=== PATIENT | female | born 1980 | race Caucasian/White ===

== ENCOUNTER 2017-03-11 08:00 | Emergency (ER) | payer BC, OTHER ==
[~2017-03-11] VITALS: Ht 154.9 cm; Wt 124.7 kg
[~2017-03-11 08:00] MED LIST: ACETAMINOPHEN-120 ML PO; AMOXICILLIN875 MG PO; ANTIVERT25 MG PO; ATIVAN1 MG; ATIVAN1 MG PO; AZITHROMYCIN 2250 MG PO; CODEINE-GUAIFE120 ML PO; DOXYCYCLINE 10100 MG PO; FLONASE 0.05%50 MCG NASAL; GLUCOPHAGE500 MG; GUAIFEN-CODEIN120 ML PO; HYDROCODONE-AC120 ML PO; HYDROCODONE-AP1 EAC6; HYDROCODONE-AP1 EAC6 PO; IBUPROFEN 600600 M1 PO; LEVOTHYROXIN0.112 M1 PO; MACROBID 100 M100 M1 PO; MICROGESTIN1 EAC1 PO; MYCELEX10 MG MM; NAPROSYN500 MG PO; NORCO 5-325 TA1 EACH PO; PENICILLIN V P500 MG PO; PERCOCET 10-321 EACH; PHENTERMINE HCL15 MG PO; PREDNISONE 20 M20 M1 PO; PROMETHAZINE-C120 ML PO; PROVENTIL HFA6.7 G1 INH; ROBAFEN AC PO; TESSALON PERLE100 MG PO; TOBREX5 ML OPHTHALMIC; TRAMADOL 50 MG50 MG PO; ULTRAM 50MG TAB50 MG PO; VALIUM5 MG PO; VENTOLIN17 GM INH; XANAX 0.5 MG0.5 M1 PO; ZOFRAN4 MG; ZOFRAN4 MG PO; ZPAK PO
[2017-03-11] MEDS ORDERED: TIZANIDINE HCL4 M1 PO (08:15)
[2017-03-11] MEDS ORDERED: HYDROCODONE-AP1 EAC6 PO (08:15)
[2017-03-11 09:03] LABS: BASOPHILS 0.5 % (0.0-2.0); EOSINOPHILS 0.5 % (0.0-3.0); HEMATOCRIT 38.2 % (37.0-47.0); HEMOGLOBIN 12.8 gm/dL (12.0-15.0); LYMPHOCYTES 24.2 % (24.0-44.0); MCH 27.6 pg (26.0-34.0); MCHC 33.6 g/dL (28.0-37.0); MCV 82.1 fL (80.0-100.0); MONOCYTES 7.4 % (1.0-8.0); PLATELET COUNT 374 thou/uL (150-400); POLYS 67.4 % (36.0-66.0); RBC 4.65 mil/uL (4.20-5.00); RDW 12.7 % (10.5-14.5); WBC 8.9 thou/uL (4.0-11.0)
[2017-03-11 09:05] LABS: MANUAL DIFF NO
[2017-03-11 09:08] LABS: CALCIUM 9.3 mg/dL (8.5-10.1); CREATININE 0.8 mg/dL (0.6-1.0); POTASSIUM 4.2 mmol/L (3.5-5.1)
[2017-03-11 09:13] LABS: ALBUMIN 3.4 g/dL (3.4-5.0); TOTAL BILIRUBIN 0.3 mg/dL (<0.1-1.0); TOTAL PROTEIN 7.9 g/dL (6.4-8.2)
[2017-03-11 09:44] LABS: URINE BILIRUBIN NEGATIVE (Negative); URINE BLOOD 3+ (Negative); URINE COLOR YELLOW; URINE GLUCOSE-RANDOM* NEGATIVE (Negative); URINE KETONES NEGATIVE (Negative); URINE LEUKOCYTES-REFLEX NEGATIVE (Negative); URINE PROTEIN (DIPSTICK) NEGATIVE (Negative); URINE SPECIFIC GRAVITY 1.025 (1.003-1.035); URINE UROBILINOGEN 0.2 E.U./dl (0.2-1.0)
[2017-03-11 09:53] LABS: CASTS None Seen /LPF (None Seen); SQUAMOUS 0-3 Few /LPF (0-3)
[2017-03-11 09:54] LABS: CRYSTALS None Seen /LPF (None Seen); URINE RBC 0-2 Rare /HPF (0-2); URINE WBC-REFLEX 0-5 Rare /HPF (0-5)
[2017-03-11] MEDS ORDERED: PRILOSEC 20 MG20 MG PO (10:37)
[2017-03-11] MEDS ORDERED: TRAMADOL 50 MG50 MG PO (10:37)
[2017-03-11 11:00] VITALS: BP 126/60
== END 2017-03-11 10:55 | disposition home or self-care (01) ==
LOC: ER 08:00
PROVIDERS: Emergency Medicine
DX: R10.13 Epigastric pain (principal); R11.0 Nausea; Z98.890 Other specified postprocedural states; Z87.891 Personal history of nicotine dependence

== ENCOUNTER 2017-05-28 06:41 | Emergency (ER) | payer BC, OTHER ==
[~2017-05-28] VITALS: Ht 154.9 cm; Wt 124.7 kg
[~2017-05-28 06:41] MED LIST changes: +CARAFATE 1 GM TA1 G1 PO; +PRILOSEC 20 MG20 MG PO; +TIZANIDINE HCL4 M1 PO
[2017-05-28 07:37] LABS: ABSOLUTE NEUTROPHILS 7.6 thou/uL (1.4-8.2); BASOPHILS 0.5 % (0.0-2.0); EOSINOPHILS 0.8 % (0.0-3.0); HEMATOCRIT 37.8 % (37.0-47.0); HEMOGLOBIN 12.5 gm/dL (12.0-15.0); LYMPHOCYTES 39.5 % (24.0-44.0); MCH 27.2 pg (26.0-34.0); MCHC 33.1 g/dL (28.0-37.0); MONOCYTES 5.8 % (1.0-8.0); PLATELET COUNT 403 thou/uL (150-400); POLYS 53.4 % (36.0-66.0); RBC 4.61 mil/uL (4.20-5.00); RDW 13.4 % (10.5-14.5); WBC 14.2 thou/uL (4.0-11.0)
[2017-05-28 07:47] LABS: CREATININE 0.8 mg/dL (0.6-1.0); POTASSIUM 3.8 mmol/L (3.5-5.1)
[2017-05-28 07:53] LABS: ALBUMIN 3.3 g/dL (3.4-5.0); TOTAL BILIRUBIN 0.2 mg/dL (<0.1-1.0); TOTAL PROTEIN 7.7 g/dL (6.4-8.2)
[2017-05-28] MEDS ORDERED: HYDROCODONE-AP1 EAC6 PO (08:30)
[2017-05-28] MEDS ORDERED: LEVSIN0.125 MG PO (08:30)
== END 2017-05-28 10:00 | disposition home or self-care (01) ==
LOC: ER 06:41
PROVIDERS: Emergency Medicine
DX: K52.9 Noninfective gastroenteritis and colitis, unspecified (principal); Z87.891 Personal history of nicotine dependence

== ENCOUNTER 2017-06-02 17:28 | Emergency (ER) | payer BC, OTHER ==
[~2017-06-02] VITALS: Ht 154.9 cm; Wt 124.7 kg
[~2017-06-02 17:28] MED LIST changes: +LEVSIN0.125 MG PO
[2017-06-02 19:06] LABS: ABSOLUTE NEUTROPHILS 9.1 thou/uL (1.4-8.2); BASOPHILS 1.3 % (0.0-2.0); EOSINOPHILS 0.7 % (0.0-3.0); HEMATOCRIT 35.6 % (37.0-47.0); LYMPHOCYTES 36.9 % (24.0-44.0); MCH 27.3 pg (26.0-34.0); MCHC 33.7 g/dL (28.0-37.0); MCV 81.2 fL (80.0-100.0); MONOCYTES 6.2 % (1.0-8.0); PLATELET COUNT 375 thou/uL (150-400); POLYS 54.9 % (36.0-66.0); RBC 4.39 mil/uL (4.20-5.00); RDW 13.3 % (10.5-14.5); WBC 16.7 thou/uL (4.0-11.0)
[2017-06-02 19:13] LABS: CALCIUM 9.1 mg/dL (8.5-10.1); CREATININE 0.8 mg/dL (0.6-1.0)
[2017-06-02 19:19] LABS: ALBUMIN 3.4 g/dL (3.4-5.0); TOTAL BILIRUBIN 0.2 mg/dL (<0.1-1.0); TOTAL PROTEIN 7.8 g/dL (6.4-8.2)
[2017-06-02 20:23] LABS: URINE BILIRUBIN NEGATIVE (Negative); URINE BLOOD NEGATIVE (Negative); URINE CLARITY CLEAR; URINE COLOR YELLOW; URINE GLUCOSE-RANDOM* NEGATIVE (Negative); URINE KETONES NEGATIVE (Negative); URINE LEUKOCYTES-REFLEX NEGATIVE (Negative); URINE NITRITE-REFLEX NEGATIVE (Negative); URINE PROTEIN (DIPSTICK) NEGATIVE (Negative); URINE UROBILINOGEN 0.2 E.U./dl (0.2-1.0)
[2017-06-02] MEDS ORDERED: CIPROFLOXACIN500 M1 PO (20:36)
[2017-06-02] MEDS ORDERED: FLAGYL500 M1 PO (20:36)
[2017-06-02] MEDS ORDERED: ZOFRAN ODT4 MG PO (20:36)
[2017-06-02] MEDS ORDERED: DIFLUCAN150 MG PO (20:36)
[2017-06-02] MEDS ORDERED: NORCO 5-325 TA1 EACH PO (20:36)
[2017-06-02] MEDS ORDERED: BENTYL 20 MG TA20 M1 PO (21:07)
== END 2017-06-02 21:00 | disposition home or self-care (01) ==
LOC: ER 17:28
PROVIDERS: Emergency Medicine
DX: K52.9 Noninfective gastroenteritis and colitis, unspecified (principal); R10.2 Pelvic and perineal pain; Z87.891 Personal history of nicotine dependence

== ENCOUNTER 2017-07-28 14:08 | Emergency (ER) | payer BC, OTHER ==
[~2017-07-28] VITALS: Ht 154.9 cm; Wt 122.5 kg
[~2017-07-28 14:08] MED LIST changes: +BENTYL 20 MG TA20 M1 PO; +CIPROFLOXACIN500 M1 PO; +DIFLUCAN150 MG PO; +FLAGYL500 M1 PO; +ZOFRAN ODT4 MG PO
[2017-07-28] MEDS ORDERED: PREDNISONE 20 M20 MG PO (15:08)
[2017-07-28 15:24] VITALS: BP 137/74
== END 2017-07-28 15:25 | disposition home or self-care (01) ==
LOC: ER 14:08
DX: T78.40XA Allergy, unspecified, initial encounter (principal); X58.XXXA Exposure to other specified factors, initial encounter; Z87.891 Personal history of nicotine dependence

== ENCOUNTER 2017-09-06 10:04 | Emergency (ER) | payer BC, OTHER ==
[~2017-09-06] VITALS: Ht 154.9 cm; Wt 122.5 kg
[~2017-09-06 10:04] MED LIST changes: +PREDNISONE 20 M20 MG PO
[2017-09-06] MEDS ORDERED: SYNTHROID150 MCG PO (10:56)
[2017-09-06] MEDS ORDERED: WELLBUTRIN XL300 MG PO (10:57)
[2017-09-06] MEDS ORDERED: VENTOLIN HFA 1818 GM INH (11:31)
[2017-09-06] MEDS ORDERED: TESSALON PERLE100 MG PO (11:31)
[2017-09-06 11:59] VITALS: BP 160/76
== END 2017-09-06 11:59 | disposition home or self-care (01) ==
LOC: ER 10:04
DX: J40 Bronchitis, not specified as acute or chronic (principal); Z87.891 Personal history of nicotine dependence

== ENCOUNTER 2018-03-07 19:24 | Emergency (ER) | payer BC, OTHER ==
[~2018-03-07] VITALS: Ht 152.4 cm; Wt 124.7 kg
[~2018-03-07 19:24] MED LIST changes: +SYNTHROID150 MCG PO; +VENTOLIN HFA 1818 GM INH; +WELLBUTRIN XL300 MG PO
[2018-03-07 22:03] VITALS: BP 155/85
== END 2018-03-07 21:11 | disposition home or self-care (01) ==
LOC: ER 19:24
DX: T23.202A Burn of second degree of left hand, unspecified site, initial encounter (principal); T31.0 Burns involving less than 10% of body surface; Z87.891 Personal history of nicotine dependence; Z98.890 Other specified postprocedural states; Z90.10 Acquired absence of unspecified breast and nipple

== ENCOUNTER 2019-01-23 10:26 | Emergency (ER) | payer BC, OTHER ==
[~2019-01-23] VITALS: Ht 154.9 cm; Wt 114.3 kg
[2019-01-23 11:09] LABS: URINE BILIRUBIN NEGATIVE (Negative); URINE BLOOD 2+ (Negative); URINE CLARITY CLEAR; URINE COLOR YELLOW; URINE GLUCOSE-RANDOM* NEGATIVE (Negative); URINE KETONES NEGATIVE (Negative); URINE NITRITE-REFLEX NEGATIVE (Negative); URINE PROTEIN (DIPSTICK) NEGATIVE (Negative); URINE SPECIFIC GRAVITY >= 1.030 (1.005-1.035); URINE UROBILINOGEN 0.2 E.U./dl (0.2-1.0)
[2019-01-23 11:11] LABS: URINE LEUKOCYTES-REFLEX 1+ (Negative)
[2019-01-23 11:17] LABS: SQUAMOUS 4-10 Moderate /LPF (0-3)
[2019-01-23 11:18] LABS: AMORPHOUS URATES Moderate /LPF (None Seen); CASTS None Seen /LPF (None Seen); URINE RBC 0-2 Rare /HPF (0-2); URINE WBC-REFLEX 0-5 Rare /HPF (0-5)
[2019-01-23 12:14] LABS: ABSOLUTE NEUTROPHILS 5.5 thou/uL (1.4-8.2); BASOPHILS 0.5 % (0.0-2.0); HEMATOCRIT 36.5 % (37.0-47.0); HEMOGLOBIN 12.2 gm/dL (12.0-15.0); LYMPHOCYTES 40.3 % (24.0-44.0); MCH 27.9 pg (26.0-34.0); MCHC 33.4 g/dL (28.0-37.0); MCV 83.5 fL (80.0-100.0); MONOCYTES 5.3 % (1.0-8.0); PLATELET COUNT 379 thou/uL (150-400); POLYS 52.9 % (36.0-66.0); RBC 4.38 mil/uL (4.20-5.00); RDW 14.3 % (10.5-14.5); WBC 10.4 thou/uL (4.0-11.0)
[2019-01-23 12:16] LABS: CALCIUM 8.5 mg/dL (8.5-10.1); CREATININE 0.8 mg/dL (0.6-1.0); POTASSIUM 3.8 mmol/L (3.5-5.1)
[2019-01-23 12:22] LABS: ALBUMIN 3.2 g/dL (3.4-5.0); TOTAL BILIRUBIN 0.3 mg/dL (<0.1-1.0); TOTAL PROTEIN 7.1 g/dL (6.4-8.2)
[2019-01-23] MEDS ORDERED: BENTYL 20 MG TA20 M1 PO (12:59)
[2019-01-23] MEDS ORDERED: ONDANSETRON HCL4 M2 PO (12:59)
[2019-01-23 13:08] VITALS: BP 135/71
--- NOTE | 2019-01-24 08:53 | EKG ---
[place] [address] [facility] [place] [address] ELECTROCARDIOGRAM REPORT Name: IVET GIRON Room #: DEP [facility]#: [id number] Admission: 01/23/19 Attend Phys: Discharge: 01/23/19 Date of : 80 Report #: [id number] THIS REPORT FOR: //name// [facility] ED Test Date: 2019-01-23 Test Time: 10:36:38 Pat Name: IVET GIRON Department: Room: Gender: F Breaker Up: ALEXIS : 1980 Requested By: Marleny Flores Order Number: [id number] MD: Quirino Aragon Measurements Intervals [place] Rate: 93 P: 44 DE: 133 QRS: 16 QRSD: 75 T: -17 QT: 442 QTc: 550 Interpretive Statements Sinus rhythm Borderline T abnormalities, diffuse leads Prolonged QT interval Compared to ECG 06/13/2015 16:36:44 T-wave abnormality now present Electronically Signed On 01-24-2019 8:53:11 CDT by Quirino Aragon [email or web address] <ELECTRONICALLY SIGNED> By: Quirino Aragon MD, [facility] 01/24/19 0853 35 35 Quirino Aragon MD, FAC /EPI
[2019-01-31] MEDS ORDERED: OXYCODONE HCL 55 MG PO (09:03)
== END 2019-01-23 13:42 | disposition home or self-care (01) ==
LOC: ER 10:26
PROVIDERS: Physician Assistant
DX: K80.50 Calculus of bile duct without cholangitis or cholecystitis without obstruction (principal); Z98.890 Other specified postprocedural states; Z87.891 Personal history of nicotine dependence

== ENCOUNTER → 2019-01-24 | Outpatient (CLI) | payer BC, OTHER ==
[~2019-01-24] MED LIST changes: +ACETAMINOPHEN325 M1 PO; +COLACE 100 MG100 MG PO; +IBUPROFEN 200200 M1 PO; +MIRALAX17 GM PO; +NORCO 5-325 TA1 EAC1 PO; +ONDANSETRON HCL4 M2 PO; +OXYCODONE HCL 55 MG PO
== END ==
LOC: NUC 13:02
DX: R10.11 Right upper quadrant pain (principal)

== ENCOUNTER 2019-01-25 13:58 | Observation (INO) | payer BC, OTHER ==
[~2019-01-25] VITALS: Ht 157.5 cm; Wt 114.8 kg
[~2019-01-25 13:58] MED LIST changes: -ACETAMINOPHEN325 M1 PO; -COLACE 100 MG100 MG PO; -IBUPROFEN 200200 M1 PO; -MIRALAX17 GM PO; -NORCO 5-325 TA1 EAC1 PO; -OXYCODONE HCL 55 MG PO
[2019-01-25 14:41] VITALS: BP 125/83
[2019-01-25 20:30] VITALS: BP 117/53
[2019-01-25 21:05] VITALS: BP 135/73
[2019-01-25 22:05] VITALS: BP 134/70
[2019-01-25 23:05] VITALS: BP 146/75
[2019-01-25 23:42] VITALS: BP 123/85
[2019-01-26 03:25] VITALS: BP 114/56
[2019-01-26 04:33] VITALS: BP 123/70
--- NOTE | 2019-01-26 05:03 | NUR ---
PROGRESS PT PROGRESSING PAIN CONTROLLED WITH SCHEDULED TYLENOL, AND PRN OXYCODONE. TOLERATING REG DIET, PT ATE A JELLO AND A BOXED LUNCH WITH NO NAUSEA. VSS, ABDOMEN SOFT WITH HYPOACTIVE BS PT REPORTS BELCHING BUT NO FLATUS AT THIS TIME. IVF'S INFUSING ORDERED. PT UP TO BATHROOM X 2 VOIDED 1500 CC'S CLEAR YELLOW URINE. TAKING PO FLUIDS IN ADEQUATE AMOUNTS. LAP SITES X 4 TO ABDOMEN WELL APPROXIMATED, NO DRAINAGE AND DERMABOND INTACT. SCD'S IN PLACE. PT VERBALIZED SHE WANTS TO GO HOME TODAY.
[2019-01-26 07:17] VITALS: BP 99/62
[2019-01-26 07:38] VITALS: BP 135/67
[2019-01-26 07:47] VITALS: BP 139/74
[2019-01-26] MEDS ORDERED: OXYCODONE HCL 55 MG PO (08:29)
[2019-01-26] MEDS ORDERED: ACETAMINOPHEN325 M1 PO (08:29)
[2019-01-26] MEDS ORDERED: COLACE 100 MG100 MG PO (08:30)
[2019-01-26] MEDS ORDERED: MIRALAX17 GM PO (08:30)
[2019-01-26] MEDS ORDERED: IBUPROFEN 200200 M1 PO (08:31)
[2019-01-26 11:12] VITALS: BP 99/62
--- NOTE | 2019-01-26 12:27 | NUR ---
Received awake on bed. Due medications given as prescribed, able to swallow meds w/o difficulty. A+Ox4. On room air. With LR at 75cc/hr, infusing well at R FA. 4 lap sites with dermabond, C/D/I- no discharge or signs of infection noted. Complained of pain, due PRN pain meds given as prescribed. Vital signs stable. Able to use the bathroom to pass urine. On regular diet- tolerating well; no nausea, no vomiting and no abdominal pain noted. Pt seen and examined by Dr Shaila gallardo AM- discharge orders made. Discharge instructions, follow up schedule, and prescription given and instructed to patient. IV discontinued. Pt brought down by [employer] via wheelchair with her personal belongings, pt fetched by her .
--- NOTE | 2019-01-27 15:07 | PATH ---
[facility] [address] [place] [address] PATHOLOGY RPT PROCEDURE Name: IVET GIRON Room #: 449-I NARESH Moreau MUrsulaRUrsula#: [id number] Admission: 01/25/19 Date of : 80 Discharge: 01/26/19 Report #: [id number] Path Case #: [id number] [facility] Accession Number: [id number] . 01 Material submitted: . gallbladder - GALLBLADDER . 01 Clinical history: . Cholecystitis . 02 Diagnosis: Gallbladder, cholecystectomy: - Mild chronic cholecystitis. - Cholesterol polyp. - Negative for dysplasia or malignancy. . (IUV:mml; 01/27/2019) QL 01/27/2019 1351 Local . 02 Electronically signed: . Alem Canales MD, Pathologist NPI- [id number] . 01 Gross description: . The specimen is received in formalin, labeled "Ivet White, gallbladder". Received is an intact gallbladder measuring 8.8 x 2.8 x 2.3 cm in greatest dimensions displaying a blue-summers serosal surface. Opening the specimen reveals a velvety, bile-stained mucosa displaying a single polypoid excrescence measuring 0.2 cm, and with a gallbladder wall thickness of 0.1 cm. Calculi are not present, and no masses or lesions are noted grossly. Roll Hand sections, to include the proximal margin, are submitted in cassette A1. (CAA; 01/26/2019) QAC/QAC 01/26/2019 [facility]0 Local . 02 Pathologist provided ICD-10: K81.1, K82.4 . 02 CPT . 034875 Specimen Comment: A courtesy copy of this report has been sent to Specimen Comment: [phone], . Specimen Comment: Report sent to / DR PALOMINO Performed at: [address], [place], [place] [id number] MD Dallas Amin MD Phone: [phone] [address] [address] PATHOLOGY RPT PROCEDURE Name: IVET GIRON Room #: 449-I NARESH Hart#: [id number] Admission: 01/25/19 Date of : 80 Discharge: 01/26/19 Report #: [id number] Path Case #: [id number] Performed at: [address] [id number] MD Alem Canales MD Phone: [phone]
[2019-01-31] MEDS ORDERED: OXYCODONE HCL 55 MG PO (09:03)
== END 2019-01-26 12:23 | disposition home or self-care (01) ==
LOC: OR 13:58 → TBA 14:39 → 4W 14:39 → ENTRNSPT 01-26 11:41 → EDTRNSPTSTS 01-26 12:00 → 4W 01-26 12:23
PROVIDERS: ADMIT Surgery
DX: K82.8 Other specified diseases of gallbladder (principal); E66.01 Morbid (severe) obesity due to excess calories; E03.9 Hypothyroidism, unspecified; F41.9 Anxiety disorder, unspecified; Z68.42 Body mass index [BMI] 45.0-49.9, adult
CPT/HCPCS: 10047; 50010; 50101; 50249; 50411; 50555; 50558; 50804; 51489; 52265; 52266; 53307; 53310; 54022; 54118; 55245; 56462; 56525; 56526; 62110; 62900; 70005

== ENCOUNTER 2019-02-07 16:16 | Emergency (ER) | payer BC, OTHER ==
[~2019-02-07] VITALS: Ht 154.9 cm; Wt 119.3 kg
[~2019-02-07 16:16] MED LIST changes: +ACETAMINOPHEN325 M1 PO; +COLACE 100 MG100 MG PO; +IBUPROFEN 200200 M1 PO; +MIRALAX17 GM PO; +OXYCODONE HCL 55 MG PO
[2019-02-07 17:17] LABS: URINE BILIRUBIN NEGATIVE (Negative); URINE BLOOD NEGATIVE (Negative); URINE CLARITY CLEAR; URINE COLOR YELLOW; URINE GLUCOSE-RANDOM* NEGATIVE (Negative); URINE KETONES NEGATIVE (Negative); URINE LEUKOCYTES-REFLEX NEGATIVE (Negative); URINE NITRITE-REFLEX NEGATIVE (Negative); URINE PROTEIN (DIPSTICK) TRACE (Negative); URINE UROBILINOGEN 0.2 E.U./dl (0.2-1.0)
[2019-02-07 18:06] LABS: ABSOLUTE NEUTROPHILS 6.3 thou/uL (1.4-8.2); BASOPHILS 0.8 % (0.0-2.0); HEMATOCRIT 36.7 % (37.0-47.0); HEMOGLOBIN 11.9 gm/dL (12.0-15.0); LYMPHOCYTES 44.7 % (24.0-44.0); MCH 27.4 pg (26.0-34.0); MCHC 32.4 g/dL (28.0-37.0); MCV 84.6 fL (80.0-100.0); MONOCYTES 5.8 % (1.0-8.0); PLATELET COUNT 423 thou/uL (150-400); POLYS 45.7 % (36.0-66.0); RBC 4.33 mil/uL (4.20-5.00); RDW 14.7 % (10.5-14.5); WBC 13.8 thou/uL (4.0-11.0)
[2019-02-07 18:17] LABS: ANION GAP 6 mmol/L (7-16); BUN 9 mg/dL (7-18); CALCIUM 9.3 mg/dL (8.5-10.1); CHLORIDE 101 mmol/L (98-107); CO2 30 mmol/L (21-32); CREATININE 0.7 mg/dL (0.6-1.0); GLUCOSE 101 mg/dL (74-106); POTASSIUM 3.9 mmol/L (3.5-5.1); SODIUM 137 mmol/L (136-145)
[2019-02-07 18:22] LABS: ALBUMIN 3.4 g/dL (3.4-5.0); LIPASE 138 U/L (73-393); SGOT 13 U/L (15-37); SGPT 15 U/L (30-65); TOTAL BILIRUBIN < 0.1 mg/dL (<0.1-1.0); TOTAL PROTEIN 7.9 g/dL (6.4-8.2)
[2019-02-07] MEDS ORDERED: NORCO 5-325 TA1 EAC1 PO (22:07)
[2019-02-07 22:46] VITALS: BP 138/99
== END 2019-02-07 22:48 | disposition home or self-care (01) ==
LOC: ER 16:16
PROVIDERS: Physician Assistant
DX: D72.829 Elevated white blood cell count, unspecified (principal); M25.561 Pain in right knee; R10.13 Epigastric pain; R10.11 Right upper quadrant pain; Z98.890 Other specified postprocedural states; Z87.891 Personal history of nicotine dependence

== ENCOUNTER 2019-11-20 09:10 | Emergency (ER) | payer BC ==
[~2019-11-20] VITALS: Ht 160 cm; Wt 127.0 kg
[~2019-11-20 09:10] MED LIST changes: +NORCO 5-325 TA1 EAC1 PO
[2019-11-20 09:15] VITALS: BP 133/78
[2019-11-20] MEDS ORDERED: TIROSINT-S150 MCG/1 PO (09:18)
[2019-11-20] MEDS ORDERED: AMOXICILLIN 50500 MG PO (09:18)
[2019-11-20] MEDS ORDERED: ALPRAZOLAM 0.50.5 MG PO (09:18)
[2019-11-20] MEDS ORDERED: ZYRTEC10 MG PO (09:58)
== END 2019-11-20 10:05 | disposition home or self-care (01) ==
LOC: ER 09:10
DX: R05 Cough (principal); J02.9 Acute pharyngitis, unspecified; Z20.828 Contact with and (suspected) exposure to other viral communicable diseases; Z87.891 Personal history of nicotine dependence; Z79.899 Other long term (current) drug therapy